=== PATIENT | female | born 2000 | race Caucasian/White ===

== ENCOUNTER 2022-10-28 17:30 | Emergency (ER) | payer OTHER, SELFPAY ==
[2022-10-28 18:36] VITALS: BP 132/88; PULSE 97; RESP 18; TEMP 36.9; O2SAT 100
--- NOTE | 2022-10-30 13:13 | ED.GENADULT ---
HPI - General Adult General Chief complaint: Upper Respiratory Infection Stated complaint: sorethroat History of Present Illness HPI narrative: 21 y/o female. PMHx non contributive. Presents to [facility] clinic today with acute complaints of nasal congestion and sore throat for the past 2-3 days. No fevers, neck pain. Denies dysphagia, involuntary drooling. Positive nonproductive cough, no chest pain, dyspnea, ,wheezing, hemoptysis. Denies GI upset, N/V/D. No current reliefs w/home remedies. Related Data Home Medications Medication Instructions Recorded Confirmed infliximab 100 mg intravenous 100 mg IV [id number] 10/28/22 10/28/22 solution (Remicade) Allergies Allergy/AdvReac Type Severity Reaction Status Date / Time No Known Allergies Allergy Verified 10/28/22 18:40 Review of Systems Review of Systems: CONSTITUTIONAL: Denies fever, chills, sweats. EYES: Denies visual changes, redness, discharge. ENT: Positive rhinorrhea, congestion, sore throat. No otalgia. CARDIOVASCULAR: Denies chest pain, palpitations, edema. RESPIRATORY: Denies dyspnea, wheezing, cough GASTROINTESTINAL: Denies abdominal pain, nausea, vomiting, diarrhea. All other systems have been reviewed: Unless noted remaining ROS Negative. Exam Narrative: GENERAL: This is a well-nourished, well-developed adult, in no apparent distress. HEAD: normocephalic, atraumatic. EYES: PERRL. Sclera clear/white. EARS: External ears normal, auditory canals clear and without drainage, TMs normal. NOSE: External nose normal. Positive Rhinorrhea, no obstruction, nares patent. THROAT: Mucous membranes moist, posterior pharynx is erythematous w/mild exudative changes. No gross swelling, uvula midline, palate soft. NECK: Neck supple, non-tender without lymphadenopathy, masses or thyromegaly. No meningeal signs. CARDIOVASCULAR: Regular rate and rhythm without murmurs, gallops, or rubs. RESPIRATORY: Clear to auscultation. Breath sounds equal bilaterally. No wheezes, rales, or rhonchi. GASTROINTESTINAL: Abdomen soft, non-tender, nondistended. Bowel sounds are active. No guarding. SKIN: warm, intact with no suspicious lesions or rash, good texture and turgor. NEURO: Alert, active, and age appropriate. Course Course Level of Care: Express Care Visit Vital Signs Vital signs: Vital Signs Temperature 36.9 C 10/28/22 18:36 Pulse Rate 97 10/28/22 18:36 Respiratory Rate 18 10/28/22 18:36 Blood Pressure 132/88 10/28/22 18:36 Pulse Oximetry 100 10/28/22 18:36 Oxygen Delivery Room Air 10/28/22 18:36 Temperature 36.9 C 10/28/22 18:36 Pulse Rate 97 10/28/22 18:36 Respiratory Rate 18 10/28/22 18:36 Blood Pressure 132/88 10/28/22 18:36 Pulse Oximetry 100 10/28/22 18:36 Oxygen Delivery Room Air 10/28/22 18:36 Medical Decision Making MDM Narrative Medical decision making narrative: -Rapid strep: POSITIVE. -Start OP Amoxicillin regimen as directed. -DC to home stable. -Resumption of other OTC remedies prn for symptomatic reliefs. -PCP F/U 1WK. -ER W/Emergent status changes. Pt agrees. Differential Diagnosis Differential Diagnosis: Differential Diagnosis: Consideration of the following conditions may be warranted for the presenting problem, they are not final diagnoses: upper respiratory infection, otitis media, sinusitis, RSV viral infection, PNA, bronchitis, pharyngitis, Streptococcal sore throat, COVID-19, Influenza, and other. Vital Signs Vital Signs: Vital Signs Temperature 36.9 C 10/28/22 18:36 Pulse Rate 97 10/28/22 18:36 Respiratory Rate 18 10/28/22 18:36 Blood Pressure 132/88 10/28/22 18:36 Pulse Oximetry 100 10/28/22 18:36 Oxygen Delivery Room Air 10/28/22 18:36 Temperature 36.9 C 10/28/22 18:36 Pulse Rate 97 10/28/22 18:36 Respiratory Rate 18 10/28/22 18:36 Blood Pressure 132/88 10/28/22 18:36 Pulse Oximetry 100 10/28/22 18:36 Oxygen Delivery R
== END 2022-10-28 19:14 | disposition home or self-care (01) ==
PROVIDERS: Emergency Provider Nurse Practitioner Adult Health; PCP Physician Assistant Medical
DX: J02.0 Streptococcal pharyngitis (principal)
CPT/HCPCS: 87880; 99213; G0463

== ENCOUNTER 2023-06-12 08:52 | Emergency (ER) | payer OTHER, SELFPAY ==
[2023-06-12 09:09] VITALS: BP 118/89; PULSE 70; RESP 16; TEMP 36.3; O2SAT 100
--- NOTE | 2023-06-12 09:17 | ED.EYEPROB ---
HPI - Eye Problem General Chief complaint: Eye Problems Stated complaint: Bilateral Eye Irritation Source: patient Mode of arrival: ambulatory Limitations: no limitations History of Present Illness HPI Narrative: 22-year-old female presents to [facility] with complaints of bilateral eyelid swelling, right is worse than left for the past 5 days. Patient reports that she had similar symptoms 10 months ago and was informed that it was allergies at that time. Patient reports that she did get antibiotic eye ointment at that time. Patient reports that she saw her eye doctor 5 days ago and was instructed that it was likely allergies and they are thinking about an exhaust and muffler fitter referral if symptoms do not improve. Patient has been taking [id number] Claritin and using Pataday eye drops with little relief. Patient denies visual problems, eye drainage, matting or injury to her eyes. MD chief complaint: other Onset (ago): day(s) (5) Location: both eyes (Right is worse than left ) Mechanism: none Associated symptoms: none Treatments Prior to Arrival: OTC eye drops Related Data Home Medications Medication Instructions Recorded Confirmed infliximab 100 mg intravenous 100 mg IV [id number] 10/28/22 06/12/23 solution (Remicade) levonorgestrel 21 mcg/24 hours (8 See Rx Instructions .Route .COMPLEX 06/12/23 06/12/23 yrs) 52 mg intrauterine device (Mirena) Allergies Allergy/AdvReac Type Severity Reaction Status Date / Time No Known Allergies Allergy Verified 06/12/23 09:02 Review of Systems Constitutional: Constitutional: Denies chills, Denies fatigue, Denies fever(s) and Denies weakness Eyes: Comments: Bilateral eyelid swelling, right is worse than left ENT: Denies dizziness, Denies epistaxis and Denies nasal congestion Cardiovascular: Cardiovascular: Denies chest pain Respiratory: Respiratory: Denies cough, Denies dyspnea and Denies wheezing Gastrointestinal: Gastrointestinal: Denies diarrhea, Denies nausea and Denies vomiting Musculoskeletal: Musculoskeletal: Denies arthralgias and Denies joint swelling Integumentary/Breasts: Skin/Breast: Denies erythema and Denies rash PMFSH Comments At time of signature, I agree with nursing past medical, surgical, social and family history. There is no relevant family history pertinent to the presenting complaint. Exam Const: General: healthy appearing, no acute distress and alert Nutritional Appearance: well nourished Orientation/consciousness: patient oriented x3 Limitations: no limitations HENMT: Head: normal to inspection Ears: external ears normal, TM's normal bilaterally and EAC's normal Face/Nose/Sinus: Normal external nose present Teeth and gingiva: dentition normal Throat: posterior oropharynx normal and uvula midline Eyes: Conjunctivae: conjunctivae normal Pupils: Equal, round and reactive pupils present EOM: EOMs intact bilaterally Direct Ophthalmoscopy: no photophobia Other: Mild swelling noted to bilateral eyelid swelling; right is worse than left. No active drainage noted. No obvious stye noted. Neck: Neck: normal visual inspection Resp: Effort & Inspection: normal respiratory effort and not labored Auscultation: clear to auscultation bilaterally, no crackles, no rales and no rhonchi Cardio: Rate: regular rate Rhythm: regular rhythm Heart sounds: no murmurs Skin: General skin exam: normal color Wounds: no wounds Neuro: General: patient oriented x3 Speech: normal speech Gait exam (Neuro): Normal gait present Psych: Affect: normal affect Attitude: cooperative Course Course Level of Care: Express Care Visit Vital Signs Vital signs: Vital Signs Temperature 36.3 C L 06/12/23 09:09 Pulse Rate 70 06/12/23 09:09 Respiratory Rate 16 06/12/23 09:09 Blood Pressure 118/89 06/12/23 09:09 Pulse Oximetry 100 06/12/23 09:09 Oxygen Delivery Room Air 06/12/23 09:09 Temperature 36.3 C L 06/12/23 09:09 Pulse Ra
== END 2023-06-12 09:29 | disposition home or self-care (01) ==
PROVIDERS: Emergency Provider Nurse Practitioner Family
DX: H02.843 Edema of right eye, unspecified eyelid (principal); H02.846 Edema of left eye, unspecified eyelid; K50.90 Crohn's disease, unspecified, without complications
CPT/HCPCS: 99213; G0463

== ENCOUNTER 2023-07-21 09:52 | Emergency (ER) | payer OTHER, SELFPAY ==
--- NOTE | 2023-07-21 10:02 | ED.URI ---
HPI - URI/Sore Throat General Chief Complaint: Upper Respiratory Infection Stated Complaint: + home covid test Time Seen by Provider: 07/21/23 10:06 Source: patient and RN notes reviewed Mode of arrival: ambulatory Limitations: no limitations History of Present Illness HPI Narrative: 22-year-old female presents with concern for headache, COVID exposure, 2 positive COVID test at home. She reports she started having symptoms today. Reports she her boyfriend has COVID, who she lives with. She denies taking any medications for her symptoms. MD elicited complaint: other (Headache) Related Data Home Medications Medication Instructions Recorded Confirmed infliximab 100 mg intravenous 100 mg IV [id number] 10/28/22 06/12/23 solution (Remicade) levonorgestrel 21 mcg/24 hours (8 See Rx Instructions .Route .COMPLEX 06/12/23 06/12/23 yrs) 52 mg intrauterine device (Mirena) Allergies Allergy/AdvReac Type Severity Reaction Status Date / Time No Known Allergies Allergy Verified 06/12/23 09:02 Review of Systems Review of Systems: CONSTITUTIONAL: Denies malaise, chills, sweats, or fever. EYES: Denies visual changes, redness, or discharge. ENT: Reports rhinorrhea, congestion, sinus pain, otalgia and sore throat. CARDIOVASCULAR: Denies chest pain, palpitations, or edema. RESPIRATORY: Reports cough. Denies dyspnea. GASTROINTESTINAL: Denies abdominal pain, nausea, vomiting, diarrhea SKIN: Denies rash or itching. MUSCULOSKELETAL: Denies myalgia. NEUROLOGIC: Reports headache. All systems reviewed & are unremarkable except as noted in HPI and below PMFSH Comments At time of signature, agree with nursing past medical, surgical, social and family history. There is no relevant family history pertinent to the presenting complaint Exam Narrative: GENERAL: Well-appearing, well-nourished, and in no acute distress. HEAD: Normocephalic EYES: PERRLA, conjunctivae clear ENT: Nares clear. Mucous membranes moist. TM pearly whitehead with sharp light reflex bilaterally; no tragal tenderness. Oropharynx not erythematous without lesions. Tonsils not enlarged and without exudate, no drooling, no hoarseness, no trismus, uvula midline. NECK: Supple. No lymphadenopathy CHEST: Clear to auscultation, breath sounds equal. No wheezing, rhonchi, rales, or stridor. No respiratory distress, speaks in full sentences. HEART: Regular rate and rhythm. No murmur heard. SKIN: Warm, dry, no rash. NEURO: Alert and oriented x3. PSYCH: Normal mood and affect Course Course Emergency Course: Patient is aware of diagnosis, understands and agrees to treatment plan. Anticipatory guidance given. Patient agrees to follow-up as directed and is aware of reasons to seek care at the emergency department. Portions of this record may have been created with voice recognition software Level of Care: Express Care Visit Vital Signs Vital signs: Reviewed. MDM - URI/Sore Throat MDM Narrative Medical decision making narrative: Differential diagnosis considered: Franco virus, strep pharyngitis, allergic rhinitis, upper respiratory tract infection, sinusitis, rhinosinusitis, nasopharyngitis. viral pharyngitis, otitis media, otitis externa, pneumonia, bronchitis, viral cough syndrome, viral syndrome, and influenza. Exam findings show no acute concerns or changes; patient is non-toxic appearing and is in no distress. Patient is appropriate for outpatient treatment and follow-up. Lab Data Attestation: I reviewed the patient's lab results. Critical Care Time Critical Care Time Critical Care Time: No Discharge Plan Discharge Clinical Impression: Upper respiratory infection Patient Disposition: Home, Self-Care Condition: Stable Additional Instructions: Your rapid COVID and flu tests are negative Your rapid strep swab was negative today at [facility]. A throat culture will be sent to the laboratory for further testing. If the test is positive, you will receive
[2023-07-21 10:10] VITALS: BP 124/88; PULSE 73; RESP 18; TEMP 36.4; O2SAT 100
== END 2023-07-21 10:25 | disposition home or self-care (01) ==
PROVIDERS: Emergency Provider Nurse Practitioner
DX: J06.9 Acute upper respiratory infection, unspecified (principal); Z20.822 Contact with and (suspected) exposure to COVID-19
CPT/HCPCS: 87081; 87426; 87804; 87880; 99213; C9803; G0463

== ENCOUNTER 2023-10-22 16:23 | Emergency (ER) | payer OTHER, SELFPAY ==
--- NOTE | 2023-10-22 17:32 | ED.URI ---
HPI - URI/Sore Throat General Chief Complaint: Upper Respiratory Infection Stated Complaint: sorethroat Time Seen by Provider: 10/22/23 17:32 Source: patient Mode of arrival: ambulatory Limitations: no limitations History of Present Illness HPI Narrative: Noah is a 22-year-old female patient presenting to clinic today with complaints of sore throat x4 weeks. She reports she has been on a round of prednisone and amoxicillin. States when she was on those medications her symptoms improved however when she finished the medications her symptoms returned. Is having pain more to the right side of her throat MD elicited complaint: sore throat and nasal congestion Related Data Home Medications Medication Instructions Recorded Confirmed infliximab 100 mg intravenous 100 mg IV [id number] 10/28/22 07/25/23 solution (Remicade) levonorgestrel 21 mcg/24 hours (8 See Rx Instructions .Route .COMPLEX 06/12/23 07/25/23 yrs) 52 mg intrauterine device (Mirena) Allergies Allergy/AdvReac Type Severity Reaction Status Date / Time No Known Allergies Allergy Verified 07/25/23 08:11 Review of Systems Review of Systems: Pertinent positives per HPI. Patient denies any fever, chills, rash, headache, visual changes, dizziness, cough, shortness of breath, chest pain, palpitations, nausea, vomiting, diarrhea, constipation, abdominal pain, or any urinary issues. [facility] Past Medical History Medical History Crohn's disease Surgical History Surgical History No pertinent past surgical history Social History Social History Smoking status: Unknown if ever smoked Alcohol intake: unknown Substance use: unknown Lack of Transportation: No Lack of Food: Never True Current Housing: I Have Housing Concerned About Future Housing: No Difficulty Paying Gas/Electric Bills: No Difficulty Paying for Meds: No Currently Unemployed: No Difficulty w/ Childcare or Family Care: No Living arrangements: with family Occupation/Education: occupation Gender identity (if verbalized by the patient): Female Comments At the time of my signature, I reviewed and agree with the nursing past medical, surgical, social, and family history. There is no relevant family history pertinent to the patient complaint. Exam Narrative: General: Well-developed, well nourished, in no apparent distress Head: Normocephalic, atraumatic Eyes: Pupils equally round and reactive to light bilaterally, EOM intact, sclera and conjunctive clear, no discharge, lids normal Ears: TMs intact and clear, ear canals clear, no drainage, grossly hearing normal. Nose: Nares patent, no discharge, no inflammation, no sinus tenderness. Mouth: Oral pharynx red without lesions or masses, good dentition, MMM. Neck: Supple, trachea midline, no enlargement of anterior or posterior cervical nodes, no thyroid masses or goiter palpable. Cardio: Regular rate and rhythm, s1 and s2 normal, no murmur appreciated. Resp: Clear to auscultation bilaterally, no rhonchi, rales, wheezing or rubs Course Course Emergency Course: Portions of this record may have been created with voice recognition software. Level of Care: Express Care Visit Vital Signs Vital signs: Vital signs reviewed MDM - URI/Sore Throat MDM Narrative Medical decision making narrative: At the time of visit patient is resting comfortably on the exam table. Patient appears to be nontoxic. Strep screen was obtained. supportive measures were discussed with the patient and they voiced understanding discharge instructions and agrees to treatment plan. Return precautions reviewed Differential Diagnosis Differential diagnosis: Likely upper respiratory infection, otitis media, sinusitis, viral infection, bronchitis, influenza, pharyng
[2023-10-22 17:34] VITALS: BP 136/92; PULSE 78; RESP 18; TEMP 37; O2SAT 100
== END 2023-10-22 18:14 | disposition home or self-care (01) ==
PROVIDERS: Emergency Provider Nurse Practitioner Family
DX: J02.9 Acute pharyngitis, unspecified (principal); K50.90 Crohn's disease, unspecified, without complications
CPT/HCPCS: 87081; 87880; 99213; G0463

== ENCOUNTER 2024-05-26 10:03 | Outpatient (CLI) | payer OTHER, SELFPAY ==
--- NOTE | ~2024-05-26 | US_ITS ---
US pelvic complete w TV DATE: 05/26/2024 10:40 INDICATION: Pelvic pain. IUD displacement. TECHNIQUE: COMPARISON: None FINDINGS: The uterus measures approximately 14.5 cm sagittal dimension, up to 8.6 cm AP dimension. Ut erine echotexture is heterogeneous with evidence of multiple masses consistent with fibroids, measuri ng up to 6 cm dimension. Brain echoes of possible IUD are suggested in the endometrial canal; recommend plain radiographic cor relation to confirm. The left ovary measures 2.1 x 3.3 x 2.1 cm, with vascular flow. The right ovary is not visualized. IMPRESSION: IUD appears to be present in the endometrial canal; recommend plain radiographic correlat ion for confirmation if clinically appropriate Enlarged uterus with multiple fibroids Right ovary is not visualized No pelvic mass or abnormal pelvic fluid collection is noted otherwise Reviewed, dictated and finalized at [facility]. Reviewed, dictated and finalized at [facility]. IMPRESSION: IUD appears to be present in the endometrial canal; recommend plain radiographic correlation for confirmation if clinically appropriate Enlarged uterus with multiple fibroids Right ovary is not visualized No pelvic mass or abnormal pelvic fluid collection is noted otherwise
== END 2024-05-26 10:04 ==
LOC: MICIMG 10:04
PROVIDERS: PCP Nurse Practitioner Family; Visit Provider Nurse Practitioner Women's Health
DX: R10.2 Pelvic and perineal pain (principal); T83.32XA Displacement of intrauterine contraceptive device, initial encounter
CPT/HCPCS: 76830; 76856

== ENCOUNTER 2024-10-09 23:36 | Emergency (ER) | payer OTHER, SELFPAY ==
--- NOTE | ~2024-10-09 | CT_ITS ---
CT of the Abdomen and Pelvis: Indication: Abdominal pain, Crohn's disease Technique: 2.5 mm axial scans were obtained through the abdomen and pelvis following intravenous adm inistration of 100 cc of Omnipaque 350. Dose reduction technique was used on this scan by utilizing a utomated exposure control and iterative reconstruction technique. The dose-length product (DLP) was 1 394.96 mGy-cm. Findings: Scans through the lung bases are unremarkable. There is diffuse hepatic steatosis. There is a 1.8 cm enhancing mass in the inferior right hepatic lo be (axial image 93). The spleen, pancreas, gallbladder, adrenals and kidneys are within normal limits . No evidence of aortic aneurysm. No lymphadenopathy. No bowel obstruction or bowel wall thickening. There is no evidence to suggest acute appendicitis. Images through the pelvis were performed. Innumerable uterine fibroids are present within the enlarge d uterus. IUD in place. Urinary bladder unremarkable. Trace pelvic free fluid noted. Impression: Diffuse hepatic steatosis. 1.8 cm enhancing mass in the inferior right hepatic lobe, indeterminate. Pre and postcontrast hepatic MR recommended to best evaluate. Enlarged multi fibroid uterus. Reviewed, dictated and finalized at location . [facility] Impression: Diffuse hepatic steatosis. 1.8 cm enhancing mass in the inferior right hepatic lobe, indeterminate. Pre an d postcontrast hepatic MR recommended to best evaluate. Enlarged multi fibroid uterus.
[2024-10-09 23:40] VITALS: BP 133/89; PULSE 91; RESP 20; TEMP 36.7; O2SAT 100
[2024-10-10 00:33] VITALS: BP 119/92; PULSE 74; PULSE 93; RESP 18; O2SAT 100; O2SAT 99
[2024-10-10 01:15] LABS: BEDSIDEPREGUCG Negative (Negative)
[2024-10-10 01:15] LABS: Basophils Absolute Auto 0.1 K/mm3 (0.0-0.1); Basophils Percent Auto 0.4 % (0.2-1.2); Eosinophils Absolute Auto 0.5 K/mm3 (0-0.3); Eosinophils Percent Auto 4.1 % (0-4.4); Hematocrit 43.5 % (37.0-47.0); Hemoglobin 15.3 g/dL (12.0-15.0); Immature Granulocyte Absolute 0.03 K/mm3 (0.00-0.031); Immature Granulocyte Percent A 0.3 % (0-0.5); Lymphocytes Absolute Auto 4.38 K/mm3 (0.9-3.2); Lymphocytes Percent Auto 38.2 % (18.3-44.2); Mean Corpuscular HGB Conc 35.2 g/dl (32-36); Mean Corpuscular Hemoglobin 30.5 pg (26-34); Mean Corpuscular Volume 86.7 fl (80-100); Mean Platelet Volume 9.2 fl (7.4-10.4); Monocytes Absolute Auto 0.9 K/mm3 (0.1-0.6); Monocytes Percent Auto 7.5 % (2.6-8.5); Neutrophils Absolute Auto 5.7 K/mm3 (1.3-6.7); Neutrophils Percent Auto 49.5 % (45.5-73.1); Platelet Count Result 338 k/mm3 (150-375); Red Blood Count 5.02 M/mm3 (4.2-5.4); Red Cell Distribution Width 12.3 % (11.5-14.5); White Blood Count 11.5 K/mm3 (4.5-10.0)
[2024-10-10 01:28] LABS: Alanine Aminotransferase 143 U/L (6-35); Albumin Level 4.8 g/dL (3.5-5.1); Alkaline Phosphatase 61 U/L (38-126); Anion Gap 9 mmol/L (4-12); Aspartate Amino Transferase 65 U/L (14-36); Bilirubin,Total 0.6 mg/dL (0.2-1.3); Blood Urea Nitrogen 13 mg/dL (7-17); Calcium 9.9 mg/dL (8.4-10.2); Carbon Dioxide 23 mmol/L (22-30); Chloride 106 mmol/L (98-107); Estimated CRCL calculation 132 ml/min; Estimated Glomerular Filt Rate > 60; Glucose 95 mg/dL (65-110); Lipase 93 U/L (23-300); Potassium 3.9 mmol/L (3.4-5.0); Sodium 138 mmol/L (137-145)
--- NOTE | 2024-10-10 01:29 | ED_ITS ---
HPI - Abdominal Pain General Chief Complaint: Abdominal Pain <STEVE Wilkins Last Filed: 10/10/24 03:55> Stated Complaint: abd pain <STEVE Wilkins Last Filed: 10/10/24 03:55> Time Seen by Provider: 10/10/24 00:42 <STEVE Wilkins Last Filed: 10/10/24 03:55> Source: patient <STEVE Wilkins Last Filed: 10/10/24 03:55> Mode of arrival: ambulatory <STEVE Wilkins Last Filed: 10/10/24 03:55> Limitations: no limitations <STEVE Wilkins Last Filed: 10/10/24 03:55> History of Present Illness HPI narrative: Patient is a 23-year-old female, with past medical history of Crohn's disease on Remicade infusions, who presents to the ED with report of abdominal pain. Patient reports having diffuse lower abdominal pain for the last 2 days. States pain is constant. Described as a band around her lower abdomen. Tried taking Tylenol and ibuprofen today, but denied improvement. reports intermittent nausea, denies vomiting. Denies diarrhea, but has had increased BM. States she thinks she may have developed a hemorrhoid and has had slight rectal bleeding noticed with wiping. Denies fevers. Sees Dr. Reid with GI in [facility]. Patient does also report history of uterine fibroids. Is scheduled to undergo myomectomy with Dr. Rosales's office in Dec <STEVE Wilkins Last Filed: 10/10/24 03:55> Related Data Home Medications: Home Medications ?Medication ?Instructions ?Recorded ?Confirmed ?Last Taken ?Type infliximab 100 mg intravenous 100 mg IV [id number] 10/28/22 07/25/23 Unknown History solution (Remicade) levonorgestrel 21 mcg/24 hr (up to See Rx Instructions .Route .COMPLEX 06/12/23 07/25/23 Unknown History 8 years) 52 mg intrauterine device (Mirena) <STEVE Wilkins Last Filed: 10/10/24 03:55> Allergies/Adverse Reactions: Allergies Allergy/AdvReac Type Severity Reaction Status Date / Time No Known Allergies Allergy Verified 07/25/23 08:11 <Karla Carolina PA-C - Last Filed: 10/10/24 03:55> Review of Systems 2 Review of Systems: All systems reviewed & are unremarkable except as noted in HPI. <Karla Carolina PA-C - Last Filed: 10/10/24 03:55> All systems reviewed & are unremarkable except as noted in HPI and below < Karla Carolina PA-C - Last Filed: 10/10/24 03:55> [facility] Past Medical History Medical History: Medical History Crohn's disease <Karla Carolina PA-C - Last Filed: 10/10/24 03:55> Surgical History Surgical History: Surgical History No pertinent past surgical history <Karla Carolina PA-C - Last Filed: 10/10/24 03:55> Social History Social History: Social History Smoking status: Unknown if ever smoked Alcohol intake: unknown Substance use: unknown Lack of Transportation: No Lack of Food: Never True Current Housing: I Have Housing Concerned About Future Housing: No Difficulty Paying Gas/Electric Bills: No Difficulty Paying for Meds: No Currently Unemployed: No Difficulty w/ Childcare or Family Care: No Living arrangements: with family Occupation/Education: occupation Gender identity (if verbalized by the patient): Female <Karla Carolina PA-C - Last Filed: 10/10/24 03:55> Exam 2 Narrative: GENERAL: Mildly uncomfortable appearing, obese with BMI of 38.4, non-toxic, in no acute distress. HEAD: Normocephalic, atraumatic. RESPIRATORY: Airway patent, respirations nonlabored. Clear to auscultation bilaterally, no rales, rhonchi, wheezing. CARDIOVASCULAR: Regular rate and rhythm without murmurs, rubs, or gallops. ABDOMINAL: Soft, diffuse tenderness throughout lower abdomen, worst in right lower quadrant, nondistended. Normoactive BS. MUSCULOSKELETAL: Moves all extremities. No gross deformities. SKIN: Warm, dry, normal color. NEURO: A&O X3. Speech clear. Cranial nerves II-XII grossly intact. Steady gait. No ataxic movements. PSYCHIATRIC: Appropriate mood and affect. Normal interaction. <Karla Carolina PA-C - Last Filed: 10/10/24 03:55> Course Course Emergency Course: CT Stat Rad Abdomen Pelvis with contrast: no evidence of bowel obstruction. No gross evidence of inflammatory change within the abdomen pelvis. Consider MR enterography with years further concerns. Enlarged multi fibroid uterus. IUD in C2. Mild pelvic free fluid which may be physiologic or reactive in nature. Decreased hepatic attenuation index. Findings can be seen with hepatic steatosis. No other acute findings. Stable for discharge. <Sondra Marquez MD - Last Filed: 10/11/24 10:08> [employer]OP[employer] ENGINEER/PA Physician Supervision PA discussed patient with me. I am aware that they have a history of Crohn's and are on the Remicade infusions for this. They have been having low abdominal pain for the past 2 days but there labs were generally okay and her pain had improved. Patient has a history of large fibroids and was pending CT abdomen pelvis. <Sondra Marquez MD - Last Filed: 10/11/24 10:08> Vital Signs Vital signs: Vital Signs Temperature 98.1 F 10/09/24 23:40 Pulse Rate 91 10/09/24 23:40 Respiratory Rate 20 10/09/24 23:40 Blood Pressure 133/89 10/09/24 23:40 Pulse Oximetry 100 10/09/24 23:40 Oxygen Delivery Room Air 10/09/24 23:40 Temperature 98.1 F 10/09/24 23:40 Pulse Rate 84 10/10/24 04:17 Respiratory Rate 18 10/10/24 04:17 Blood Pressure 123/89 10/10/24 04:17 Pulse Oximetry 100 10/10/24 04:17 Oxygen Delivery Room Air 10/09/24 23:40 <Karla Carolina PA-C - Last Filed: 10/10/24 03:55> Vital Signs Temperature 98.1 F 10/09/24 23:40 Pulse Rate 91 10/09/24 23:40 Respiratory Rate 20 10/09/24 23:40 Blood Pressure 133/89 10/09/24 23:40 Pulse Oximetry 100 10/09/24 23:40 Oxygen Delivery Room Air 10/09/24 23:40 Temperature 98.1 F 10/09/24 23:40 Pulse Rate 84 10/10/24 04:17 Respiratory Rate 18 10/10/24 04:17 Blood Pressure 123/89 10/10/24 04:17 Pulse Oximetry 100 10/10/24 04:17 Oxygen Delivery Room Air 10/09/24 23:40 <Sondra Marquez MD - Last Filed: 10/11/24 10:08> MDM - Abdominal Pain MDM Narrative Medical decision making narrative: patient presented to ED with 2 day history of abdominal pain, nausea, history of Crohn's disease and uterine fibroids. Vital signs are stable upon arrival. Patient is afebrile here. Cbc with white blood cell count of 11.5. Stable H&H. CMP with mild transaminitis noted. patient states this is likely normal for her. She has history of fatty liver disease. No records to compare to. Normal bilirubin. Normal lipase. Patient without any upper abdominal tenderness on exam. UA without evidence of infection. test negative. CT scan of abdomen / pelvis was obtained. Care signed out to Dr. Marquez at shift change pending STAT RAD CT results. < Karla Carolina PA-C - Last Filed: 10/10/24 03:55> Medical Records Attestation: I reviewed the patient's medical records. <Karla Carolina PA-C - Last Filed: 10/10/24 03:55> Lab Data Attestation: I reviewed the patient's lab results. <Karla Carolina PA-C - Last Filed: 10/10/24 03:55> Result diagrams: 10/10/24 01:08 10/10/24 01:08 <Karla Carolina PA-C - Last Filed: 10/10/24 03:55> Labs: Lab Results 10/10/24 10/10/24 Range/Units 01:08 01:13 WBC 11.5 H (4.5-10.0) K/mm3 RBC 5.02 (4.2-5.4) M/mm3 Hgb 15.3 H (12.0-15.0) g/dL Hct 43.5 (37.0-47.0) % MCV 86.7 (80-100) fl MCH 30.5 (26-34) pg MCHC 35.2 (32-36) g/dl RDW 12.3 (11.5-14.5) % Plt Count 338 (150-375) k/mm3 MPV 9.2 (7.4-10.4) fl Immature Gran % (Auto) 0.3 (0-0.5) % Neut % (Auto) 49.5 (45.5-73.1) % Lymph % (Auto) 38.2 (18.3-44.2) % Crawford % (Auto) 7.5 (2.6-8.5) % Eos % (Auto) 4.1 (0-4.4) % Baso % (Auto) 0.4 (0.2-1.2) % Lymph # (Auto) 4.38 H (0.9-3.2) K/mm3 Crawford # (Auto) 0.9 H (0.1-0.6) K/mm3 Eos # (Auto) 0.5 H (0-0.3) K/mm3 Baso # (Auto) 0.1 (0.0-0.1) K/mm3 Abs Immat Gran (auto) 0.03 (0.00-0.031) K/mm3 Absolute Neuts (auto) 5.7 (1.3-6.7) K/mm3 Absolute Nucleated RBC 0.000 (0.0-0.012) K/mm3 Nucleated RBC % 0.0 (0.0-0.2) % Sodium 138 (137-145) mmol/L Potassium 3.9 (3.4-5.0) mmol/L Chloride 106 (98-107) mmol/L Carbon Dioxide 23 (22-30) mmol/L Anion Gap 9 (4-12) mmol/L BUN 13 (7-17) mg/dL Creatinine 0.60 L (0.7-1.0) mg/dL Estim Creat Clear Calc 132 ml/min Estimated GFR > 60 (59 - ) Glucose 95 (65-110) mg/dL Calcium 9.9 (8.4-10.2) mg/dL Total Bilirubin 0.6 (0.2-1.3) mg/dL AST 65 H (14-36) U/L ALT 143 H (6-35) U/L Alkaline Phosphatase 61 (38-126) U/L Total Protein 9.0 H (6.3-8.2) g/dL Albumin 4.8 (3.5-5.1) g/dL Lipase 93 (23-300) U/L Urine Color Yellow (Yellow) Urine Appearance Clear (Clear) Urine pH 6.5 (5.0-9.0) Ur Specific [place] 1.013 (1.001-1.035) Urine Protein Negative (Negative) mg/dL Urine Glucose (UA) Negative (Negative) mg/dL Urine Ketones Negative (Negative) mg/dL Ur Blood (Man) Negative (Negative) Urine Nitrate Negative (Negative) Urine Bilirubin Negative (Negative) Urine Urobilinogen 0.2 (<2.0) mg/dL Add Ur Microanalysis Reviewed Leukocyte Esterase Rfl 1+ H (Negative) LEMUEL/UL Urine RBC 0-2 (0-2) /hpf Urine WBC 0-5 (0-3) /hpf Ur Squamous Epith Cells Occasional (Few) /hpf Urine Bacteria None seen /hpf Urine Casts 0-2 POC Urine HCG, Qual Negative (Negative) Urine Test Negative <Karla Carolina PA-C - Last Filed: 10/10/24 03:55> Lab Results 10/10/24 10/10/24 Range/Units 01:08 01:13 WBC 11.5 H (4.5-10.0) K/mm3 RBC 5.02 (4.2-5.4) M/mm3 Hgb 15.3 H (12.0-15.0) g/dL Hct 43.5 (37.0-47.0) % MCV 86.7 (80-100) fl MCH 30.5 (26-34) pg MCHC 35.2 (32-36) g/dl RDW 12.3 (11.5-14.5) % Plt Count 338 (150-375) k/mm3 MPV 9.2 (7.4-10.4) fl Immature Gran % (Auto) 0.3 (0-0.5) % Neut % (Auto) 49.5 (45.5-73.1) % Lymph % (Auto) 38.2 (18.3-44.2) % Crawford % (Auto) 7.5 (2.6-8.5) % Eos % (Auto) 4.1 (0-4.4) % Baso % (Auto) 0.4 (0.2-1.2) % Lymph # (Auto) 4.38 H (0.9-3.2) K/mm3 Crawford # (Auto) 0.9 H (0.1-0.6) K/mm3 Eos # (Auto) 0.5 H (0-0.3) K/mm3 Baso # (Auto) 0.1 (0.0-0.1) K/mm3 Abs Immat Gran (auto) 0.03 (0.00-0.031) K/mm3 Absolute Neuts (auto) 5.7 (1.3-6.7) K/mm3 Absolute Nucleated RBC 0.000 (0.0-0.012) K/mm3 Nucleated RBC % 0.0 (0.0-0.2) % Sodium 138 (137-145) mmol/L Potassium 3.9 (3.4-5.0) mmol/L Chloride 106 (98-107) mmol/L Carbon Dioxide 23 (22-30) mmol/L Anion Gap 9 (4-12) mmol/L BUN 13 (7-17) mg/dL Creatinine 0.60 L (0.7-1.0) mg/dL Estim Creat Clear Calc 132 ml/min Estimated GFR > 60 (59 - ) Glucose 95 (65-110) mg/dL Calcium 9.9 (8.4-10.2) mg/dL Total Bilirubin 0.6 (0.2-1.3) mg/dL AST 65 H (14-36) U/L ALT 143 H (6-35) U/L Alkaline Phosphatase 61 (38-126) U/L Total Protein 9.0 H (6.3-8.2) g/dL Albumin 4.8 (3.5-5.1) g/dL Lipase 93 (23-300) U/L Urine Color Yellow (Yellow) Urine Appearance Clear (Clear) Urine pH 6.5 (5.0-9.0) Ur Specific [place] 1.013 (1.001-1.035) Urine Protein Negative (Negative) mg/dL Urine Glucose (UA) Negative (Negative) mg/dL Urine Ketones Negative (Negative) mg/dL Ur Blood (Man) Negative (Negative) Urine Nitrate Negative (Negative) Urine Bilirubin Negative (Negative) Urine Urobilinogen 0.2 (<2.0) mg/dL Add Ur Microanalysis Reviewed Leukocyte Esterase Rfl 1+ H (Negative) LEMUEL/UL Urine RBC 0-2 (0-2) /hpf Urine WBC 0-5 (0-3) /hpf Ur Squamous Epith Cells Occasional (Few) /hpf Urine Bacteria None seen /hpf Urine Casts 0-2 POC Urine HCG, Qual Negative (Negative) Urine Test Negative <Sondra Marquez MD - Last Filed: 10/11/24 10:08> Imaging Data Attestation: I personally reviewed and interpreted this imaging study as follows: < Karla Carolina PA-C - Last Filed: 10/10/24 03:55> Radiologist's impression: ITS Impressions Abdomen/Pelvis CT 10/10/24 06:10 Impression: Diffuse hepatic steatosis. 1.8 cm enhancing mass in the inferior right hepatic lobe, indeterminate. Pre and postcontrast hepatic MR recommended to best evaluate. Enlarged multi fibroid uterus. <Karla Carolina PA-C - Last Filed: 10/10/24 03:55> ITS Impressions Abdomen/Pelvis CT 10/10/24 06:10 Impression: Diffuse hepatic steatosis. 1.8 cm enhancing mass in the inferior right hepatic lobe, indeterminate. Pre and postcontrast hepatic MR recommended to best evaluate. Enlarged multi fibroid uterus. <Sondra Marquez MD - Last Filed: 10/11/24 10:08> Discharge Plan Discharge Clinical Impression: Lower abdominal pain Crohn's disease Qualifiers: Gastrointestinal tract location: unspecified location Digestive disease complication type: unspecified complication Qualified Code(s): K50.919 - Crohn's disease, unspecified, with unspecified complications <Karla Carolina PA-C - Last Filed: 10/10/24 03:55> Patient Disposition: Home, Self-Care <STEVE Wilkins Last Filed: 10/10/24 03:55> Condition: Stable <STEVE Wilkins Last Filed: 10/10/24 03:55> Instructions: Antibiotic Form, Crohn Disease (ED), Abdominal Pain (ED) <STEVE Wilkins Last Filed: 10/10/24 03:55> Additional Instructions: Follow-up with your primary care doctor and GI specialist for further evaluation. Utilize Tylenol, Bentyl as needed for further abdominal discomfort. Zofran as needed for nausea. Return to the ED if you experience worsening or severe symptoms, unable to keep down food or drink, severe rectal bleeding, dark black stools, persistent fevers, or any other symptoms of concern. <STEVE Wilkins Last Filed: 10/10/24 03:55> Patient Language: Chadian <STEVE Wilkins Last Filed: 10/10/24 03:55> Prescriptions: New dicyclomine 20 mg tablet 20 mg PO TID PRN (Reason: Abdominal Discomfort) Qty: 15 0RF ondansetron 4 mg tablet,disintegrating 4 mg PO Q8H PRN (Reason: nausea and vomiting) Qty: 15 0RF No Action infliximab [Remicade] 100 mg Recon Soln 100 mg IV [id number] Mirena 21 mcg/24 hours (8 yrs) 52 mg Intrauterine Device See Rx Instructions .ROUTE .COMPLEX Rx Instructions: 21 mcg intrauterinely Paxlovid 300 mg (150 mg x 2)-100 mg tablets,dose pack See Rx Instructions PO .COMPLEX Qty: 30 0RF Rx Instructions: take TWO 150 mg tablets of nirmatrelvir with ONE 100 mg tablet of ritonavir twice daily for 5 days PO <STEVE Wilkins Last Filed: 10/10/24 03:55> Follow-up/Referrals: Radha,Danette Johnson APRN [Primary Care Provider] - <STEVE Wilkins Last Filed: 10/10/24 03:55> Stand Alone Forms: Work/School Release IP <Karla Carolina PA-C - Last Filed: 10/10/24 03:55> Time of Disposition: 05:35 <Karla Carolina PA-C - Last Filed: 10/10/24 03:55> 05:35 <Sondra Marquez MD - Last Filed: 10/11/24 10:08>
[2024-10-10 01:33] LABS: Pregnancy On Board Control Positive; Urine Pregnancy Test Negative
[2024-10-10 01:37] LABS: Add Urine Microscopic? YES; Appearance Urine Clear (Clear); Bacteria Urine None Seen /hpf; Bilirubin Urine Negative (Negative); Blood Urine Negative (Negative); Color Urine Yellow (Yellow); Glucose Urine UA Negative (Negative); Ketones Urine Negative (Negative); Leukocyte Esterase Ur 1+ LEU/UL (Negative); Need Manual Microscopic Reviewed; Nitrate Urine Negative (Negative); Non Pathogenic Casts 0-2; Protein Urine Negative (Negative); RBC Urine 0-2 /hpf (0-2); Specific Grav Ur 1.013 (1.001-1.035); Squamous Epithelial Cell Urine Occasional /hpf (Few); Urobilinogen Urine 0.2 mg/dL (<2.0); WBC Urine 0-5 /hpf (0-3); pH Urine 6.5 (5.0-9.0)
[2024-10-10] MEDS: SODIUM CHLORIDE 0.9% IV 1,000 ML 999 ML IV CONT (01:46)
[2024-10-10] MEDS: ONDANSETRON INJ 4 MG/2 ML VIAL IV PUSH (01:46)
[2024-10-10] MEDS: MORPHINE SULFATE (*CRX) 4 MG/ML INJ IV PUSH (01:46)
[2024-10-10 04:17] VITALS: BP 123/89; PULSE 84; RESP 18; O2SAT 100
[2024-10-10] MEDS: HYDROmorphone HCL INJ (*CRX) 1 MG/ML SYR 0.5 MG IV PUSH (04:17)
== END 2024-10-10 06:12 | disposition home or self-care (01) ==
PROVIDERS: Physician Assistant; Emergency Provider Student in an Organized Health Care Education/Training Program; PCP Nurse Practitioner Family
DX: R10.30 Lower abdominal pain, unspecified (principal); K50.919 Crohn's disease, unspecified, with unspecified complications
CPT/HCPCS: 36415; 74177; 80053; 81001; 81025; 83690; 85025; 87086; 96361; 96374; 96375; 99284; J1171; J2270; J2405; J7030; Q9967